=== PATIENT | female | born 1950 | race Caucasian/White ===

== ENCOUNTER → 2016-12-05 | Outpatient (CLI) | payer MEDICARE, MEDICAID ==
[~2016-12-05] MED LIST: AMOXICILLIN500 M2 PO; AMOXICILLIN500 MG PO; ASPIRIN EC325 MG PO; BACTRIM DS 8001 TA1 PO; BUDEPRION XL150 MG PO; CIPRO250 MG PO; CIPROFLOXACIN500 MG PO; COL-RITE100 MG PO; DAYPRO600 M1 PO; DICLOFENAC POTA50 MG PO; FLEXERIL5 MG PO; FLONASE 0.05% 121 EA NAS; Fioricet 325 MG1 TAB PO; HYDROCHLOROTHIA25 MG PO; HYDROCODONE BIT1 T11 PO; K-DUR 20MEQ20 MEQ PO; K-DUR20 MEQ PO; K-TAB20 MEQ PO; LEVAQUIN250 MG PO; LOMOTIL 0.025 M1 TA1 PO; LOMOTIL 0.025 M1 TAB PO; Lovenox40 MG/0.4 PO; MEDROL DOSEPAK4 MG PO; MOTRIN800 MG PO; PAXIL CR25 MG PO; PAXIL20 MG PO; PERCOCET 325 MG1 TA4 PO; PREDNISONE20 M1 PO; PYRIDIUM200 MG PO; ROBITUSSIN AC 110 ML PO; SYNTHROID,LEVO25 MCG PO; SYNTHROID0.075 MG PO; VICODIN 5/500 505 MG PO; VICODIN 500 MG-1 TAB PO; VITAMIN D2000 IU PO; VOLTAREN50 M1 PO; VOLTAREN50 MG PO; ZITHROMAX250 MG PO; ZOFRAN ODT4 MG SL; ZOFRAN ODT8 MG PO; ZYRTEC10 MG PO; Zofran4 MG PO; [UNRECOGNIZED DRUG - REMARK] PO
[2016-12-05 16:21] LABS: BASO # 0.1 10*3/uL (0.0-0.1); BASO % 1.1 % (0.0-1.0); EOS # 0.2 10*3/uL (0.0-0.4); EOS % 3.2 % (1.0-4.0); HEMOGLOBIN 15.3 g/dl (12.0-16.0); LYMPH # 2.6 10*3/uL (1.3-4.4); LYMPH % 34.7 % (27.0-41.0); MEAN CELL VOLUME 93.1 fl (81.0-99.0); MEAN CORPUSCULAR HGB CONC 33.3 g/dl (33.0-37.0); MEAN PLATELET VOLUME 9.1 fl (9.6-12.3); MONO # 0.6 10*3/uL (0.1-1.0); MONO % 7.5 % (3.0-9.0); NEUT % 53.2 % (47.0-73.0); PLATELET COUNT AUTOMATED 264 10*3/uL (130-400); RED BLOOD COUNT 4.94 10*6/uL (4.10-5.10); RED CELL DISTRI WIDTH 13.1 % (0-14.5); WHITE BLOOD COUNT 7.5 10*3/uL (4.8-10.8)
[2016-12-05 16:22] LABS: BILIRUBIN NEGATIVE (NEGATIVE); BLOOD NEGATIVE (NEGATIVE); CLARITY CLEAR (CLEAR); COLOR YELLOW (YELLOW); GLUCOSE NEGATIVE (NEGATIVE); KETONE NEGATIVE (NEGATIVE); LEUKO ESTERASE 1+ (NEGATIVE); NITRITE POSITIVE (NEGATIVE); PH 5.5 (5.0-9.0); SPECIFIC GRAVITY >= 1.030 (1.005-1.030); UROBILINOGEN 0.2 E.U./dl (0.2-1.0)
[2016-12-05 16:27] LABS: BACTERIA 4+; RBC 0-2 rbc/hpf (0-2)
[2016-12-05 16:30] LABS: ACT PARTIAL THROMBO TIME 22.7 SECONDS (20.8-31.5)
[2016-12-05 16:36] LABS: ALBUMIN 3.6 gm/dl (3.1-4.5); ALKALINE PHOSPHATASE 59 U/L (45-117); BUN 16 mg/dl (7-24); CHLORIDE 106 mmol/L (98-107); CREATININE 1.04 mg/dL (0.55-1.02); POTASSIUM 3.9 mmol/L (3.5-5.1); SGOT/AST 17 IU/L (3-35); SGPT/ALT 17 U/L (12-78); SODIUM 141 mmol/L (136-145); TOTAL PROTEIN 7.7 gm/dL (6.4-8.2)
[2016-12-05 16:37] LABS: FREE T4 1.07 ng/dl (0.76-1.46)
== END | disposition home or self-care (01) ==
LOC: LAB 15:56
PROVIDERS: Orthopaedic Surgery
DX: Z01.818 Encounter for other preprocedural examination (principal); E03.9 Hypothyroidism, unspecified; M19.90 Unspecified osteoarthritis, unspecified site; I10 Essential (primary) hypertension; R35.0 Frequency of micturition; R53.83 Other fatigue; M79.609 Pain in unspecified limb; Z79.899 Other long term (current) drug therapy

== ENCOUNTER → 2017-01-27 | Outpatient (CLI) | payer MEDICARE ==
[2017-01-27 10:44] LABS: BILIRUBIN NEGATIVE (NEGATIVE); BLOOD NEGATIVE (NEGATIVE); CLARITY CLOUDY (CLEAR); COLOR YELLOW (YELLOW); GLUCOSE NEGATIVE (NEGATIVE); KETONE NEGATIVE (NEGATIVE); LEUKO ESTERASE 1+ (NEGATIVE); NITRITE NEGATIVE (NEGATIVE); SPECIFIC GRAVITY 1.025 (1.005-1.030); UROBILINOGEN 0.2 E.U./dl (0.2-1.0)
[2017-01-27 11:37] LABS: BACTERIA 2+; EPITHELIAL CELLS 20-30; WBC 21-30 wbc/hpf (0-5)
== END | disposition home or self-care (01) ==
LOC: LAB 10:00
PROVIDERS: Physician Assistant
DX: R78.81 Bacteremia (principal)

== ENCOUNTER 2017-02-24 11:10 | Emergency (ER) | payer MEDICARE ==
[~2017-02-24] VITALS: Ht 154.9 cm; Wt 90.7 kg
[2017-02-24] MEDS ORDERED: ASPIRIN LITE C325 MG PO (11:22)
[2017-02-24 13:39] VITALS: BP 108/67
[2017-02-24] MEDS ORDERED: Motrin,Rufen800 MG PO (14:40)
== END 2017-02-24 14:47 | disposition home or self-care (01) ==
LOC: ED 11:10
DX: S80.02XA Contusion of left knee, initial encounter (principal); G43.909 Migraine, unspecified, not intractable, without status migrainosus; Z90.49 Acquired absence of other specified parts of digestive tract; Z98.890 Other specified postprocedural states; Z79.899 Other long term (current) drug therapy; Z96.652 Presence of left artificial knee joint; Z79.82 Long term (current) use of aspirin; Z88.4 Allergy status to anesthetic agent; Z91.041 Radiographic dye allergy status; W00.0XXA Fall on same level due to ice and snow, initial encounter; Y93.89 Activity, other specified; Y92.513 Shop (commercial) as the place of occurrence of the external cause; Y99.9 Unspecified external cause status

== ENCOUNTER 2017-03-14 10:30 | Emergency (ER) | payer MEDICARE ==
[~2017-03-14] VITALS: Ht 154.9 cm; Wt 99.8 kg
[~2017-03-14 10:30] MED LIST changes: +ASPIRIN LITE C325 MG PO; +Motrin,Rufen800 MG PO
[2017-03-14 10:34] VITALS: BP 148/88
[2017-03-14 10:56] LABS: BASO % 0.5 % (0.0-1.0); EOS # 0.3 10*3/uL (0.0-0.4); HEMATOCRIT 44.9 % (37.0-47.0); HEMOGLOBIN 14.8 g/dl (12.0-16.0); LYMPH # 2.5 10*3/uL (1.3-4.4); LYMPH % 38.1 % (27.0-41.0); MEAN CELL VOLUME 92.8 fl (81.0-99.0); MEAN CORPUSCULAR HGB 30.6 pg (27.0-31.0); MEAN PLATELET VOLUME 9.1 fl (9.6-12.3); MONO # 0.5 10*3/uL (0.1-1.0); NEUT # 3.2 10*3/uL (2.3-7.9); NEUT % 49.2 % (47.0-73.0); PLATELET COUNT AUTOMATED 302 10*3/uL (130-400); RED BLOOD COUNT 4.84 10*6/uL (4.10-5.10); RED CELL DISTRI WIDTH 13.1 % (0-14.5); WHITE BLOOD COUNT 6.5 10*3/uL (4.8-10.8)
[2017-03-14 11:12] LABS: ALBUMIN 3.7 gm/dl (3.1-4.5); CREATININE 1.12 mg/dL (0.55-1.02); POTASSIUM 3.3 mmol/L (3.5-5.1); TOTAL PROTEIN 7.6 gm/dL (6.4-8.2)
[2017-03-14 11:41] LABS: BILIRUBIN 1+ (NEGATIVE); BLOOD TRACE-INTACT (NEGATIVE); CLARITY CLOUDY (CLEAR); COLOR YELLOW (YELLOW); GLUCOSE TRACE (NEGATIVE); KETONE TRACE (NEGATIVE); LEUKO ESTERASE 2+ (NEGATIVE); NITRITE NEGATIVE (NEGATIVE); PH 5.5 (5.0-9.0); SPECIFIC GRAVITY 1.025 (1.005-1.030)
[2017-03-14 11:49] LABS: BACTERIA 3+; EPITHELIAL CELLS 21-30; WBC 31-40 wbc/hpf (0-5)
[2017-03-14] MEDS ORDERED: AMINOPHYLLIN200 MG PO (12:00)
== END 2017-03-14 12:18 | disposition home or self-care (01) ==
LOC: ED 10:30
PROVIDERS: Emergency Medicine
DX: N39.0 Urinary tract infection, site not specified (principal); R73.9 Hyperglycemia, unspecified; G43.909 Migraine, unspecified, not intractable, without status migrainosus; E87.6 Hypokalemia; Z91.041 Radiographic dye allergy status; Z88.8 Allergy status to other drugs, medicaments and biological substances; Z79.899 Other long term (current) drug therapy; Z79.82 Long term (current) use of aspirin; Z90.49 Acquired absence of other specified parts of digestive tract

== ENCOUNTER 2019-07-19 15:42 | Emergency (ER) | payer OTHER, MEDICAID ==
[~2019-07-19 15:42] MED LIST changes: +AMINOPHYLLIN200 MG PO
[2019-07-19 15:50] VITALS: BP 148/70
[2019-07-19] MEDS ORDERED: INDOMETHACIN ER75 M1 PO (16:43)
== END 2019-07-19 17:47 | disposition home or self-care (01) ==
LOC: ED 15:42
DX: M10.9 Gout, unspecified (principal); M79.641 Pain in right hand; G43.909 Migraine, unspecified, not intractable, without status migrainosus; I10 Essential (primary) hypertension; M19.90 Unspecified osteoarthritis, unspecified site; Z88.8 Allergy status to other drugs, medicaments and biological substances; Z91.041 Radiographic dye allergy status; Z79.899 Other long term (current) drug therapy; Z79.82 Long term (current) use of aspirin

== ENCOUNTER → 2019-09-16 | Outpatient (CLI) | payer OTHER, MEDICAID ==
[~2019-09-16] MED LIST changes: +INDOMETHACIN ER75 M1 PO
== END | disposition home or self-care (01) ==
LOC: RAD 08:25
DX: K21.0 Gastro-esophageal reflux disease with esophagitis (principal)

== ENCOUNTER → 2020-06-12 | Outpatient (CLI) | payer OTHER ==
[2020-06-12 09:28] LABS: CREATININE 1.12 mg/dL (0.55-1.02); POTASSIUM 4.2 mmol/L (3.5-5.1)
[2020-06-12 09:34] LABS: THYROID STIM HORMONE (HS) 3.84 uIU/ml (0.358-4.75)
== END | disposition home or self-care (01) ==
LOC: LAB 00:18
PROVIDERS: ATTEND Internal Medicine
DX: I10 Essential (primary) hypertension (principal); E03.9 Hypothyroidism, unspecified